=== PATIENT | male | born 1980 | race Caucasian/White ===

== ENCOUNTER 2018-05-15 17:51 | Inpatient (IN) | payer BC ==
[~2018-05-15] VITALS: Ht 182.9 cm; Wt 121.8 kg
[2018-05-15] MEDS ORDERED: FISH OIL 1,0001 CA1 PO (17:59)
[2018-05-15 18:33] LABS: BASOPHILS 0.1 % (0-2); EOSINOPHILS 0.1 % (0-7); HEMATOCRIT 48.2 % (42.0-54.0); HEMOGLOBIN 16.7 g/dL (13.5-17.5); IMMATURE GRANULOCYTES 0.3 % (0-5); LYMPHOCYTES 12.6 % (15-50); MCH 32.6 pg (26.0-34.0); MCHC 34.6 g/dL (31.0-37.0); MCV 94.1 fL (80.0-100.0); MEAN PLATELET VOLUME 10.5 fL (7.4-10.4); MONOCYTES 5.7 % (2-11); NEUTROPHILS 81.2 % (40-80); PLATELET COUNT 199 10x3/uL (130-400); RBC 5.12 10x6/uL (4.20-6.10); RDW 12.6 % (11.5-14.5); WBC 15.4 10x3/uL (4.8-10.8)
[2018-05-15 19:03] LABS: ALBUMIN 4.2 g/dL (3.4-5.0); ALKALINE PHOSPHATASE 69 U/L (46-116); ALT (SGPT) 61 U/L (10-68); BILIRUBIN - TOTAL 0.57 mg/dL (0.2-1.3); CALC OSMOLALITY 286 mosm/kg (275-300); CALCIUM 8.9 mg/dL (8.5-10.1); CARBON DIOXIDE 28.2 mmol/L (21.0-32.0); CHLORIDE - SERUM 103 mmol/L (98-107); GLUCOSE 102 mg/dL (74-106); POTASSIUM - SERUM 3.8 mmol/L (3.5-5.1); PROTEIN - SERUM 7.8 g/dL (6.4-8.2); SODIUM 144 mmol/L (136-145); UREA NITROGEN 12 mg/dL (7-18); eGFR NON AFRICAN AMERICAN 90 mL/min (90-120)
--- NOTE | 2018-05-15 19:12 | NUR ---
MEDICATIONS GIVEN PER ORDER, NS INFUSING PER ORDER, CALL LIGHT WITHIN REACH, FAMILY AT BEDSIDE. REPORT GIVEN TO JACQUE MEDRANO
--- NOTE | 2018-05-15 19:41 | MORECARE ---
CASE MANAGEMENT DISCHARGE SUMMARY PATIENT: KEEGAN CORDOVA UNIT: [id number] ADM DATE: 05/15/18 AGE: 37 : [birth year] SEX: M ROOM/BED: D.2224 AUTHOR: LUCERO ECHEVERRIA PHYSICIAN: REFERRING PHYSICIAN: MARINA QUIJANO MD DATE OF SERVICE: 05/15/18 Discharge Plan Patient Name: KEEGAN CORDOVA [facility] [facility] 1980 Planned Disposition: Anticipated Discharge Date: Discharge Date: Expected LOS: Initial Reviewer: [id number] Initial Review Date: 05/15/2018 Generated: 05/15/18 8:41 pm Patient Name: KEEGAN CORDOVA Page [id number] at 194 All edits/amendments must be made on the electronic document DICTATION DATE: 05/15/181940 MEDICINE MAN: EL 05/15/181940 RPT#: [id number] DC DATE: STATUS: ADM IN [facility] [address] [place] [address] END OF REPORT
--- NOTE | 2018-05-15 20:00 | NUR ---
PT ARRIVED ON UNIT VIA WHEELCHAIR ESCORTED BY ER STAFF AND PARENTS. ORIENTED TO ROOM AND CALL LIGHT. IV FLUIDS STARTED PER ORDER. PT DENIES PAIN AT THIS TIME. CALL LIGHT WITHIN REACH.
--- NOTE | 2018-05-15 20:36 | NUR ---
GAVE RADIOLOGY DISC FROM [facility] TO OUR RADIOLOGY DEPT TO LOAD INTO OUT SYSTEM.
[2018-05-15 21:02] VITALS: BP 150/89
[2018-05-15 22:37] VITALS: BP 150/89; BMI 36.4
--- NOTE | 2018-05-15 22:46 | NUR ---
ADMISSION ASSESSMENT AND HISTORY COMPLETE.
[2018-05-15] MEDS ORDERED: PRINIVIL20 MG PO (22:47)
[2018-05-15] MEDS ORDERED: BAYER CHEWABLE81 MG PO (22:47)
[2018-05-15] MEDS ORDERED: MULTI-DAY VITAM1 TAB PO (22:48)
[2018-05-15] MEDS ORDERED: CALCIUM 600 +1 EAC3 PO (22:48)
[2018-05-15] MEDS ORDERED: GARLIC PO (22:50)
[2018-05-16] VITALS (16 sets, daily range): BP systolic 112–141; BP diastolic 59–89; Ht 182.9 cm; Wt 121.8 kg
--- NOTE | 2018-05-16 05:00 | NUR ---
PT CONSENTED FOR AM SURGERY.
--- NOTE | 2018-05-16 05:21 | NUR ---
HIBACLENS BATH PERFORMED AND ALL LINENS AND GOWN CHANGED.
[2018-05-16 06:37] LABS: BASOPHILS 0.2 % (0-2); HEMATOCRIT 41.7 % (42.0-54.0); IMMATURE GRANULOCYTES 0.2 % (0-5); LYMPHOCYTES 20.9 % (15-50); MCH 31.6 pg (26.0-34.0); MCHC 33.6 g/dL (31.0-37.0); MCV 94.1 fL (80.0-100.0); MEAN PLATELET VOLUME 10.7 fL (7.4-10.4); MONOCYTES 9.6 % (2-11); NEUTROPHILS 68.1 % (40-80); PLATELET COUNT 189 10x3/uL (130-400); RBC 4.43 10x6/uL (4.20-6.10); RDW 12.6 % (11.5-14.5)
[2018-05-16 06:44] LABS: WBC 8.9 10x3/uL (4.8-10.8)
[2018-05-16 06:47] LABS: CALC OSMOLALITY 284 mosm/kg (275-300); CALCIUM 8.3 mg/dL (8.5-10.1); CHLORIDE - SERUM 108 mmol/L (98-107); CREATININE - SERUM 0.8 mg/dL (0.6-1.3); GLUCOSE 92 mg/dL (74-106); MAGNESIUM - SERUM 1.9 mg/dL (1.8-2.4); PHOSPHOROUS 2.8 mg/dL (2.5-4.9); POTASSIUM - SERUM 4.2 mmol/L (3.5-5.1); SODIUM 143 mmol/L (136-145); UREA NITROGEN 12 mg/dL (7-18); eGFR NON AFRICAN AMERICAN > 90 mL/min (90-120)
--- NOTE | 2018-05-16 18:37 | NUR ---
PATIENT IN BED WITH IV INTACT. NO COMPLAINTS OR SIGNS OF DISTRESS. CALL LIGHTW ITHIN REACH.
[2018-05-16] MEDS ORDERED: NORCO 10-325 TA1 TAB PO (20:18)
--- NOTE | 2018-05-16 21:20 | NUR ---
REC'D FROM REC'Y ROOM PER BED POST OP LAP APPY. ONE LARGE BANDAIDE AND 2 SMALLER ONES TO LAP SITES ON ABDOMEN. IV PATENT RT ARM OF NS AT [employer]. FAMILY MEMBERS AT BEDSIDE.
--- NOTE | 2018-05-17 | NUR ---
UP TO BR VOIDS IN URINAL 300CC'S YAMILA COLORED URINE.ASSISTED BACK TO BED SR UP X2 CALL LIGHT WITHIN REACH DENIES NEEDS.
[2018-05-17 04:22] VITALS: BP 122/73
[2018-05-17 06:16] LABS: BASOPHILS 0 % (0-2); EOSINOPHILS 0 % (0-7); HEMATOCRIT 44.7 % (42.0-54.0); HEMOGLOBIN 15.3 g/dL (13.5-17.5); IMMATURE GRANULOCYTES 0.2 % (0-5); LYMPHOCYTES 6.7 % (15-50); MCH 32.3 pg (26.0-34.0); MCHC 34.2 g/dL (31.0-37.0); MCV 94.5 fL (80.0-100.0); MEAN PLATELET VOLUME 10.6 fL (7.4-10.4); MONOCYTES 1.5 % (2-11); NEUTROPHILS 91.6 % (40-80); PLATELET COUNT 205 10x3/uL (130-400); RBC 4.73 10x6/uL (4.20-6.10); RDW 12.6 % (11.5-14.5); WBC 10.8 10x3/uL (4.8-10.8)
[2018-05-17 06:23] LABS: CALC OSMOLALITY 281 mosm/kg (275-300); CALCIUM 8.9 mg/dL (8.5-10.1); CARBON DIOXIDE 27.2 mmol/L (21.0-32.0); CHLORIDE - SERUM 103 mmol/L (98-107); CREATININE - SERUM 0.9 mg/dL (0.6-1.3); GLUCOSE 127 mg/dL (74-106); POTASSIUM - SERUM 4.4 mmol/L (3.5-5.1); SODIUM 141 mmol/L (136-145); UREA NITROGEN 11 mg/dL (7-18); eGFR NON AFRICAN AMERICAN > 90 mL/min (90-120)
[2018-05-17 08:40] VITALS: BP 135/86
--- NOTE | 2018-05-17 09:02 | NUR ---
PT DC HOME, GAVE PT DOCTOR'S EXCUSE AND RX. WENT OVER DC INSTRUCTIONS AND ANSWERED ALL QUESTIONS, NO OTHER NEEDS VOICED, PT TAKEN DOWN VIA WC WITH COLLAR SEPARATOR
--- NOTE | 2018-05-17 09:16 | OP ---
PATIENT NAME: KEEGAN CORDOAV MEDICAL RECORD: [id number] :82 LOCATION:D.[facility] [id number] ADMISSION DATE:05/15/18 SURGEON: ANNIE SIMONS MD DATE OF OPERATION: 05/16/2018 PREOPERATIVE DIAGNOSES: 1. Acute appendicitis with localized peritonitis. 2. Hypertension. 3. Morbid obesity. POSTOPERATIVE DIAGNOSES: 1. Acute appendicitis with localized peritonitis. 2. Hypertension. 3. Morbid obesity. PROCEDURE: Laparoscopic appendectomy. SURGEON: Annie Simons MD REPORT OF PROCEDURE: The patient's abdomen was prepped and draped in sterile fashion. A cutdown was made on the superior aspect of the umbilicus and 0 Vicryls were placed on the fascia bilaterally. The fascia was incised with a 15-blade and I bluntly entered the peritoneal cavity. A 5-mm trocar was placed in the left lower quadrant and another was placed in the suprapubic region. The appendix was found and noted to be distended and inflamed, but there was no sign of gangrenous perforation and there was no surrounding fluid. A window was made at the mesoappendix near the cecum. The appendix was transected at the cecum using a 45 blue load Endo-BIRGIT stapler. The mesoappendix was then transected with a 45 white load Endo-BIRGIT stapler and placed into an EndoCatch bag. There was some bleeding from the staple line and this was treated with electrocautery and 2 clips. This discontinued any bleeding. We irrigated out the right lower quadrant. At this point, the ports and insufflation were then removed and the appendix was taken out through the umbilicus. The umbilical fascia was closed with interrupted 0 Vicryls times 4. The wounds were then irrigated out with normal saline, infused with 10 mL of 0.25% Marcaine with epinephrine. The skin was closed with subcutaneous 5-0 Monocryl and dressed appropriately. COMPLICATIONS: None. CONDITION: Stable. ANESTHESIA: General endotracheal and local. BLOOD LOSS: Minimal. 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
--- NOTE | 2018-05-18 16:41 | MORECARE ---
CASE MANAGEMENT DISCHARGE SUMMARY PATIENT: KEEGAN CORDOVA UNIT: [id number] ADM DATE: 05/15/18 AGE: 37 : 82 SEX: M ROOM/BED: D.2224 AUTHOR: LUCERO ECHEVERRIA PHYSICIAN: REFERRING PHYSICIAN: MARINA QUIJANO MD DATE OF SERVICE: 05/18/18 Discharge Plan Patient Name: KEEGAN CORDOVA [facility] [facility] 1980 Planned Disposition: Anticipated Discharge Date: Discharge Date: 05/17/2018 Expected LOS: 0 Initial Reviewer: [id number] Initial Review Date: 05/15/2018 Generated: 05/18/18 5:41 pm Last DP export: 05/15/18 6:41 Patient Name: KEEGAN CORDOVA Page [id number] at 1641 All edits/amendments must be made on the electronic document DICTATION DATE: 05/18/181640 PRINTER'[employer] DEVIL: DM 05/18/181640 RPT#: [id number] DC DATE:05/17/18 STATUS: DIS IN [facility] [address] [place] [address] END OF REPORT
== END 2018-05-17 09:03 | disposition home or self-care (01) | DRG 343 ==
LOC: D.ER 17:51 → D.MS 18:23
PROVIDERS: Family Medicine; Internal Medicine Nephrology; Surgery; ADMIT Emergency Medicine
PROC: 0DTJ4ZZ Resection of Appendix, Percutaneous Endoscopic Approach (ICD-10-PCS; principal; 2018-05-16 12:30)
DX: K37 Unspecified appendicitis (principal); I10 Essential (primary) hypertension; E66.01 Morbid (severe) obesity due to excess calories; Z68.36 Body mass index [BMI] 36.0-36.9, adult